=== PATIENT | male | born 1995 | race African-American/Black ===

== ENCOUNTER 2024-05-28 08:40 | Emergency (ER) | payer MEDICAID, OTHER ==
[~2024-05-28] VITALS: Ht 185.4 cm; Wt 94.5 kg
[2024-05-28 09:07] LABS: Urine Bacteria None Seen /hpf (None Seen)
[2024-05-28 09:19] LABS: Urine Blood 3+ /uL (Negative); Urine Clarity Clear (Clear); Urine Color Colorless (Yellow); Urine Protein, UAD TRACE (Negative); Urine Specific Gravity 1.023 (1.001-1.035); Urine Squamous Epithelial Cell FEW /hpf (<5); Urine Urobilinogen Normal (Negative); Urine WBC 5 /HPF (0-3); Urine pH 6.5 (5.0-9.0)
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
[2024-05-28 10:17] LABS: Basophils # (auto) 0 10 ^3/uL (0-0.2); Basophils % (auto) 0.4 % (0.0-2.0); Chloride 105 mmol/L (98-107); Eosinophils # (auto) 0 10 ^3/uL (0-0.8); Eosinophils % (auto) 0.6 % (0.0-7.0); Hematocrit 50.8 % (41.0-53.0); Hemoglobin 17.1 g/dL (13.5-17.5); Lymphocytes # (auto) 1.6 10 ^3/uL (0.4-5.4); Lymphocytes % (auto) 20.4 % (10.0-50.0); Mean Corpuscular Hemoglobin 30.9 pg (28.0-32.0); Mean Corpuscular Hgb Conc. 33.7 g/dL (32.0-36.0); Mean Corpuscular Volume 91.8 fL (80.0-100.0); Monocytes # (auto) 0.6 10 ^3/uL (0-1.3); Monocytes % (auto) 8.1 % (0.0-12.0); Neutrophils # (auto) 5.5 10 ^3/uL (1.6-8.6); Neutrophils % (auto) 70.5 % (37.0-80.0); Nucleated Red Blood Cells % 0.3 %; Platelet Count (auto) 181 10^3/uL (140-450); Potassium 4.6 mmol/L (3.5-5.1); Red Blood Cells 5.54 10^6/uL (4.5-5.90); Red Cell Distribution Width 13.6 % (11.8-14.3); Sodium 140 mmol/L (136-145); White Blood Cell 7.8 10^3/uL (4.4-10.8)
[2024-05-28 10:18] LABS: Anion Gap 6 (5-15); Carbon Dioxide 29 mmol/L (20-31)
[2024-05-28 10:23] LABS: BUN/Creatinine Ratio 11.4 (10.0-20.0); Blood Urea Nitrogen 13 mg/dL (9-23); Glucose 99 mg/dL (74-106)
[2024-05-28] MEDS: HYDROcodone-ACET 10/325MG TAB PO ONE (10:58)
[2024-05-28] MEDS: IOHEXOL 300 MG/ML 100ML BOTTLE IJ ONE (11:37)
--- NOTE | 2024-05-28 11:51 | DVH ---
Exam: CT CT AB PEL WITH IV CON ONLY History: bladder TECHNIQUE: A digital early childhood educator aide image was obtained. During the uneventful, intravenous administration of c ontrast material, multislice data acquisition was obtained through the abdomen and pelvis. The data s et was subsequently reconstructed into axial images. Images were reviewed on a work station using a c ombination of axial and multiplanar using a variety of window levels and settings. 100 cc of Omnipaqu e 300 contrast was injected intravenously. All CT scans at this medical facility are performed using dose modulation techniques as appropriate t o a performed exam including the following:Automated exposure control was utilized; adjustment of the MA and/or KV according to patient size; and use of iterative reconstruction technique. Radiation Dose Information: CT Dose: CTDI volume is 12 mGy. Dose-length product is 638 mGy*cm Comparison: None FINDINGS: Theliver, gallbladder, pancreas, kidneys, adrenal glands, and spleen appear within normal limits. There is no evidence of abdominal lymphadenopathy. There is no free fluid or free air. The stomach grossly appears unremarkable. The small and large bowel loops demonstrate normal caliber and appear within normal limits. The appendix is not readily identified in the right lower quadrant abdomen. There are no secondary signs of acute appendicitis.. The abdominal aorta and IVC appear within normal limits. The bladder appears within normal limits the degree of distention. There is no evidence of a bladder calculus. Pelvic organs is unremarkable. There is no evidence of a pelvic mass or lymphadenopathy. Th ere is no free fluid collection. Lung bases are clear. There is no acute osseous abnormality. IMPRESSION: 1. There is no acute process in the abdomen and pelvis.. HS:Y
[2024-05-28 13:11] VITALS: PULSE 84; RESP 14; O2SAT 96
[2024-05-28] MEDS ORDERED: IBU600T PO (13:22)
[2024-05-28 13:29] VITALS: BP 154/97; PULSE 87; RESP 18
[2024-05-28] MEDS: MORPHINE SULFATE 4 MG/ML SYR/VIAL IV ONE (13:29)
[2024-05-28] MEDS: ONDANSETRON HCL 4 MG/2 ML VIAL IV ONE (13:30)
== END 2024-05-28 13:40 | disposition home or self-care (01) ==
LOC: ER 08:40
DX: R10.31 Right lower quadrant pain (principal); R31.9 Hematuria, unspecified; V49.49XA Driver injured in collision with other motor vehicles in traffic accident, initial encounter; Y93.89 Activity, other specified; Y92.488 Other paved roadways as the place of occurrence of the external cause; Y99.8 Other external cause status
CPT/HCPCS: 36415; 74177; 80048; 81001; 85025; 96374; 96375; 99285; J2270; J2405; Q9967